=== PATIENT | female | born 1955 | race Caucasian/White ===

== ENCOUNTER → 2017-05-21 | Outpatient (CLI) | payer OTHER ==
[~2017-05-21] MED LIST: AMLO10TA2 PO; ATOR40TA PO; CATHETER FLUSH 10 ML SYR IV PRN; FURO-125 PO; LISI-552 PO; REGADENOSON 0.4 MG/5 ML SYR (LEXISCAN) IV ONE
[2017-05-21 12:44] VITALS: BP 157/83
[2017-05-21 13:02] VITALS: BP 151/100
[2017-05-21 15:07] VITALS: BP 157/83
--- NOTE | 2017-05-21 15:07 | Cardiology Stress Test Report ---
Stress Test Report Type of NM Stress Test: Test Type: LEXISCAN 0.4MG/5ML Date of Procedure/Referring: Date of Procedure: May 21, 2017 PCP Noni Al MD Admitting Physician No,Local Physician Indications: Chest pain, hypertension Baseline Heart Rate: 87 Baseline Blood Pressure: Blood Pressure Systolic: 157 Blood Pressure Diastolic: 83 Baseline EKG: Baseline EKG: sinus rhythm with prolonged PA interval. Summary: The patient was brought to the stress lab after informed consent was taken. Lexiscan stress test was performed according to the protocol. 0.4 mg of Lexiscan was given IV. Low-grade exercise was performed. Baseline EKG showed sinus rhythm with prolonged PA interval at 87 BPM. Blood pressure was 157/83 mmHg. Maximum heart rate was 111 BPM. Blood pressure was 162/106 mmHg. There was no chest pain, ST-T wave abnormalities or arrhythmias noted. 10.44 mCi of Myoview was given for rest imaging and 29.4 mCi of Myoview was given for stress imaging. Transient ischemic dilatation score is 1.1. Ejection fraction is 72 percent with no wall motion abnormalities. There is a large size mild to moderate anterior/lateral reversible ischemia noted. SSS 5. Conclusion: Pharmacological nuclear stress test is negative for ischemia. Normal LV function with no wall motion abnormalities. Anterior lateral ischemia. Coronary angiography is recommended. Noni AL MD May 21, 2017 3:07 pm
== END ==
LOC: CARD 11:10
PROVIDERS: ATTEND Internal Medicine Interventional Cardiology
DX: R07.9 Chest pain, unspecified (principal); E78.5 Hyperlipidemia, unspecified; I10 Essential (primary) hypertension; E66.01 Morbid (severe) obesity due to excess calories
CPT/HCPCS: 78452; 93017

== ENCOUNTER 2017-05-22 08:50 | Day surgery (SDC) | payer OTHER ==
[~2017-05-22] VITALS: Ht 167.6 cm; Wt 156.5 kg
[2017-05-22] VITALS (9 sets, daily range): BP systolic 139–164; BP diastolic 66–91
[~2017-05-22 08:50] MED LIST changes: -CATHETER FLUSH 10 ML SYR IV PRN; -FURO-125 PO; -LISI-552 PO; -REGADENOSON 0.4 MG/5 ML SYR (LEXISCAN) IV ONE
[2017-05-22] MEDS ORDERED: LIDOCAINE 1% INJ 50 ML (XYLOCAINE) VIAL ONE (09:10)
[2017-05-22] MEDS ORDERED: HEParin (CATH LAB) 2,000 ML IV ONE (09:10)
[2017-05-22] MEDS ORDERED: NS IV 1000 ML 1,000 ML ONE (09:10)
[2017-05-22] MEDS ORDERED: NS IV 1000 ML 1,000 ML IV SCH ×2 (09:18→14:10)
[2017-05-22] MEDS ORDERED: LISI-552 PO ×2 (09:56)
[2017-05-22] MEDS ORDERED: INFLUENZA TRIvalent 2017-2018 0.5 ML/45 MCG SYR IM ONE (10:00)
[2017-05-22 11:15] LABS: HEMOGLOBIN 13.9 G/DL (11.5-16.0); MEAN PLATELET VOLUME 10.2 FL (7.4-10.4); RED BLOOD COUNT 4.63 10^6/uL (4.35-5.85); RED CELL DISTRIBUTION WIDTH 13.3 % (10.0-14.5); WHITE BLOOD COUNT 8.1 10^3/uL (4.3-11.0)
[2017-05-22 11:29] LABS: PROTHROMBIN TIME PATIENT 12.9 SEC (12.2-14.7)
[2017-05-22 11:41] LABS: ALANINE AMINOTRANSFERASE 16 U/L (0-55); ALBUMIN 4.3 GM/DL (3.2-4.5); ALKALINE PHOSPHATASE 60 U/L (40-136); BUN/CREATININE RATIO 17; CALCIUM 9.7 MG/DL (8.5-10.1); CARBON DIOXIDE 25 MMOL/L (21-32); CHLORIDE 105 MMOL/L (98-107); CHOLESTEROL 112 MG/DL (< 200); CREATININE SERUM 0.84 MG/DL (0.60-1.30); GFR ESTIMATED > 60; GLUCOSE 96 MG/DL (70-105); HDL CHOLESTEROL 46 MG/DL (40-60); SODIUM 141 MMOL/L (135-145); TOTAL PROTEIN 7.4 GM/DL (6.4-8.2); TRIGLYCERIDES 67 MG/DL (<150); VLDL CHOLESTEROL 13 MG/DL (5-40)
[2017-05-22] MEDS ORDERED: MIDAZOLAM 5 MG/5 ML (VERSED) VIAL ONE (12:33)
[2017-05-22] MEDS ORDERED: fentaNYL INJECTION 100 MCG/2 ML AMP ONE (12:33)
[2017-05-22] MEDS ORDERED: diphenhydrAMINE 50 MG/ML INJ (BENADRYL) ONE (12:34)
[2017-05-22] MEDS ORDERED: NITROGLYCERIN DRIP 25 MG/D5W 250 ML IV ONE (12:34)
[2017-05-22] MEDS ORDERED: HEParin 1000 UNIT/ML (10ML VIAL) FOR BOLUS ONE (12:34)
[2017-05-22] MEDS ORDERED: VERAPAMIL 5 MG/2 ML (CALAN) VIAL IV ONE (12:34)
--- NOTE | 2017-05-22 14:04 | Cardiac Procedure Note-CS/ASA ---
Pre-Procedure Note Pre-Op Procedure Note H&P Reviewed The H&P was reviewed, patient examined and no changes noted. Date H&P Reviewed: May 22, 2017 Time H&P Reviewed: 11:00 Conscious Sedation Pre-Proced Time Reviewed: 11:00 ASA Class: 3 Airway Mallampati Classification: (lac courte oreilles appropriate class) I. II. III, IV Lungs Heart ASA score ASA 1: a normal healthy patient ASA 2: a patient with a mild systemic disease (mid diabetes, controlled hypertension, obesity ASA 3: a patient with a severe systemic disease that limits activity (angina , COPD, prior Myocardial infarction) ASA 4: a patient with an incapacitating disease that is a constant threat to life (CHF, renal failure) ASA 5: a moribund patient not expected to survive 24 hrs. (ruptured aneurysm) ASA 6: a declared brain patient whose organs are being harvested. For emergent operations, add the letter E after the classification Grade 1 Sedation Plan: Analgesia, Amnesia, Plan communicated to team members, Discussed options with patient/fam, Discussed risks with patient/fam Note The patient is an appropriate candidate to undergo the planned procedure, sedation, and anesthesia. The patient immediately re-assessed prior to indication. Noni CANALES MD May 22, 2017 2:04 pm
--- NOTE | 2017-05-22 14:10 | Coronary Angiography Report ---
Coronary Angiography Report DATE OF PROCEDURE: 05/22/17 INDICATION: chest pain, abnormal nuclear stress test. PREOPERATIVE DIAGNOSIS: chest pain, abnormal nuclear stress test. POSTOPERATIVE DIAGNOSIS: 1. Patent epicardial coronary arteries. 2. Hypertensive heart disease with diastolic dysfunction. HISTORY: this is a 62-year-old lady with history of severe hypertension who complained of recurrent episodes of chest discomfort. Stress test was performed which showed an anterior reversible defect.Therefore, the patient was scheduled for coronary angiography. PROCEDURES PERFORMED: 1.Coronary angiography. 2.Left heart catheterization. 3. Aortic root injection. 4. Aortic arch angiography. COMPLICATIONS: None. SPECIMENS: None. ESTIMATED BLOOD LOSS: 10 mL ANESTHESIA: Conscious sedation ANTICOAGULATION: IV heparin CONTRAST: 90 mL of Omnipaque. FLUOROSCOPY: 6.1 minutes. FLOUROSCOPY DOSE:900 mgy. PROCEDURE DETAILS: The patient is a 62 female and was brought to the [facility] after informed consent was taken. All the risks and complications were explained in detail; this included the risk of bleeding, vascular damage, stroke , IA and even . The patient was draped and prepped in the usual sterile fashion. Access was gained in the right radial artery with a 6 Uzbek sheath. Coronary angiography of the left coronary system was performed with the Blanco catheter. Aortic root injection and aortic arch angiography was performed with the Blanco catheter. Left heart catheterization and coronary angiography of the RCA was performed with the JR4 catheter. FINDINGS: 1.Left main: patent. 2.LAD: mild mid bridging. No significant disease. Transapical vessel. 3.Left circumflex artery: dominant vessel. Patent. 4.RCA: nondominant with no significant disease. 5.Left heart catheterization: aortic pressure 137/88 mmHg. LV pressure 140/20 mmHg. LVEDP 30 mmHg. Normal LV function with no wall motion abnormalities. No gradient across the aortic valve. 6. Aortic root injection: No significant aortic regurgitation and patent ostium of the left main. 7. Aortic arch angiography: No evidence of aneurysm or dissection noted. CONCLUSIONS: 1. Patent epicardial coronary arteries. 2. Hypertensive heart disease with elevated LVEDP suggesting diastolic dysfunction. Zane Al MD, FACP, FACC, [facility] Interventional Cardiology Noni AL MD May 22, 2017 2:10 pm
[2017-05-22] MEDS ORDERED: FURO-125 PO ×2 (14:12)
--- NOTE | 2017-05-22 14:12 | Discharge Inst-Post CATH ---
Discharge Inst-CATH Post Cardiac Cath D/C Inst Follow Up/Plan Dr. Al in one month. CARDIAC CATH DISCHARGE INSTRUCTIONS *Hold Metformin for 48 hours post heart cath. ACTIVITY * Go Home directly and rest. * Limit activity of the leg (or wrist if it was used) for 7 days including aerobics, swimming, jogging, bicycling, etc. * Restrict stair-climbing for 7 days if possible, if not, climb up with your non -cath leg, then bring together on the same step. * Avoid lifting, pushing, pulling or excessive movement of the affected extremity for 7 days. * Customary sexual activity may be resumed after 2 days-use caution not to use a position that strains or causes pain to the affected extremity. * No driving for 24 hours. * NO SMOKING. * Avoid straining for bowel movements for 7 days. * Gentle walking on level ground is allowed. * Returning to work will depend on the type of procedure and the results. Your doctor will discuss this with you. CALL YOUR DOCTOR FOR ANY OF THE FOLLOWING: *If bleeding from the puncture site occurs- Apply gentle pressure to site with clean cloth and call your doctor or EMS. * If a knot or lump forms under the skin, increases in size, or causes pain. * If bruising appears to be worsening or moving further down your leg instead of disappearing. * Temperature above 101 F. CARE OF YOUR GROIN INCISION; * Bruising or purple discoloration of the skin near the puncture site is common. * You may shower only, no bathtub bathing for 5 days. Be careful to avoid slipping as your leg may feel stiff. * If a closure device was used on your femoral artery, please see the attached guide regarding care of the device and your leg. * REMOVE the dressing from your groin the next day after your procedure in the shower. CARE OF YOUR WRIST INCISION; * Bruising or purple discoloration of the skin near the puncture site is common. * You may shower. * DO NOT submerge wrist. * Remove dressing in 24 hours. Noni AL MD May 22, 2017 2:12 pm
[2017-05-22] MEDS ORDERED: PATIENT MAY USE OWN MEDS, ALL PO SCH (14:15)
--- NOTE | 2017-05-22 14:15 | Cardiology Discharge Summary ---
Diagnosis/Chief Complaint Date of Admission 05/22/2017 Date of Discharge 05/22/2017 Admission Diagnosis chest pain, abnormal nuclear stress test Final/Discharge Diagnosis patent epicardial coronary arteries. Diastolic dysfunction Chief Complaint/HPI Chief Complaint/HPI this is a 62-year-old lady with new onset severe hypertension. She also had recurrent episodes of chest pain and shortness of breath.. Pharmacological nuclear stress test showed evidence of anterior ischemia. Coronary angiography and left heart catheterization was recommended. Discharge Summary Procedures coronary angiography showed patent epicardial coronary vessels. Left heart catheterization shows diastolic dysfunction. Discharge Physical Examination unremarkable Hospital Course unremarkable Pending Labs Laboratory Tests 05/22/17 11:05: White Blood Count 8.1, Red Blood Count 4.63, Hemoglobin 13.9, Hematocrit 41, Mean Corpuscular Volume 88, Mean Corpuscular Hemoglobin 30, Mean Corpuscular Hemoglobin Concent 34, Red Cell Distribution Width 13.3, Platelet Count 248, Mean Platelet Volume 10.2, Prothrombin Time 12.9, INR Comment 1.0, Activated Partial Thromboplast Time 26, Sodium Level 141, Potassium Level 4.0, Chloride Level 105, Carbon Dioxide Level 25, Anion Gap 11, Blood Urea Nitrogen 14, Creatinine 0.84, Estimat Glomerular Filtration Rate > 60, BUN/Creatinine Ratio 17, Glucose Level 96, Calcium Level 9.7, Total Bilirubin 2.0, Aspartate Amino Transf (AST/SGOT) 19, Alanine Aminotransferase (ALT/SGPT) 16, Alkaline Phosphatase 60, Total Protein 7.4, Albumin 4.3, Triglycerides Level 67, Cholesterol Level 112, LDL Cholesterol Direct 54, VLDL Cholesterol 13, HDL Cholesterol 46 Discussion & Recommendations Discussion due to diastolic dysfunction/hypertensive heart disease will add low-dose daily Lasix. Follow up appt.: Dr. Al in one month. Dicharge Diet: Low Sodium Diet Home Medications Reviewed patient Home Medication Reconciliation Form Discharge Home Medications: Reviewed and agree with Discharge Medication list on patient's Discharge Instruction sheet Condition at discharge stable. Instructions to patient/family Dr. Al in one month. Noni AL MD May 22, 2017 2:15 pm
== END 2017-05-22 17:24 | disposition home or self-care (01) ==
LOC: CATH 08:50
PROVIDERS: ATTEND Internal Medicine Interventional Cardiology
DX: I11.9 Hypertensive heart disease without heart failure (principal); E78.5 Hyperlipidemia, unspecified; E66.01 Morbid (severe) obesity due to excess calories; Z68.43 Body mass index [BMI] 50.0-59.9, adult; Z79.899 Other long term (current) drug therapy
CPT/HCPCS: 36221; 36415; 80053; 80061; 85027; 85610; 85730; 87081; 93458; 93567

== ENCOUNTER → 2020-11-01 | Outpatient (CLI) | payer OTHER ==
[~2020-11-01] MED LIST changes: +AMLO-251 PO; -AMLO10TA2 PO; +FURO-125 PO; +LISI20TA26 PO
[2020-11-01 17:54] LABS: BASOPHILS # (AUTO) 0.1 10^3/uL (0.0-0.1); BASOPHILS % (AUTO) 1 % (0-10); EOSINOPHILS # (AUTO) 0.3 10^3/uL (0.0-0.3); EOSINOPHILS % (AUTO) 5 % (0-10); HEMATOCRIT 35 % (35-52); HEMOGLOBIN 11.3 g/dL (11.5-16.0); LYMPHOCYTES % (AUTO) 27 % (12-44); MEAN CORPUSCULAR HEMOGLOBIN 30 pg (25-34); MEAN CORPUSCULAR HGB CONC 33 g/dL (32-36); MEAN CORPUSCULAR VOLUME 94 fL (80-99); MONOCYTES # (AUTO) 0.4 10^3/uL (0.0-1.0); MONOCYTES % (AUTO) 6 % (0-12); NEUTROPHILS # (AUTO) 4.6 10^3/uL (1.8-7.8); NEUTROPHILS % (AUTO) 62 % (42-75); PLATELET COUNT 226 10^3/uL (130-400); WHITE BLOOD COUNT 7.4 10^3/uL (4.3-11.0)
[2020-11-01 18:03] LABS: ALBUMIN 3.9 GM/DL (3.2-4.5); POTASSIUM 4.1 MMOL/L (3.6-5.0)
[2020-11-01 18:04] LABS: CALCIUM 9.3 MG/DL (8.5-10.1)
[2020-11-01 18:07] LABS: BILIRUBIN,TOTAL 1.5 MG/DL (0.1-1.0)
[2020-11-01 18:09] LABS: CREATININE SERUM 0.92 MG/DL (0.60-1.30)
[2020-11-01 18:12] LABS: MAGNESIUM 1.9 MG/DL (1.6-2.4)
== END ==
LOC: LAB 17:31
PROVIDERS: ATTEND Internal Medicine Cardiovascular Disease
DX: E78.2 Mixed hyperlipidemia (principal); R06.09 Other forms of dyspnea
CPT/HCPCS: 36415; 80053; 80061; 83735; 84443; 85025

== ENCOUNTER 2021-07-28 10:23 | Emergency (ER) | payer MEDICARE, OTHER ==
[~2021-07-28] VITALS: Ht 157 cm; Wt 151.0 kg
--- NOTE | 2021-07-28 10:46 | Diagnostic Imaging Report ---
EXAMINATION: Chest 1 view HISTORY: Right arm weakness. Slurred speech. COMPARISON: 05/11/2017. FINDINGS: The lung volumes are normal. No focal consolidation is seen. No large pleural effusion or pneumothorax is seen. The cardiomediastinal silhouette is normal in size and contour. No acute osseous abnormality is seen. IMPRESSION: 1. No acute pleuroparenchymal process. Dictated by: Dictated on workstation # [id number]
--- NOTE | 2021-07-28 10:49 | Diagnostic Imaging Report ---
EXAMINATION: CT head without contrast. TECHNIQUE: Multiple contiguous axial images were obtained through the brain without the use of intravenous contrast. All CT scans use one or more of the following dose optimizing techniques: Automated exposure control, MA and/or KvP adjustment based on patient size and exam type or iterative reconstruction. HISTORY: Right-sided weakness. Slurred speech. Concern for acute ischemia. COMPARISON: None available. FINDINGS: Small acute hemorrhage is visualized within the left basal ganglia and extending into the left fuentes radiata. No surrounding edema or mass effect is seen at this time. Chronic microvascular disease is scattered in the periventricular and subcortical white matter. The ventricles, cortical sulci, and basilar cisterns are symmetric and unremarkable. The sellar and suprasellar regions have a normal appearance. The orbits are normal. Retained secretions are seen in the bilateral maxillary and ethmoid sinuses. Mastoid air cells are clear. No soft tissue abnormality is seen. No osseous lesions or fractures are seen. IMPRESSION: 1. Small focus of acute hemorrhage within the left basal ganglia and left fuentes radiata, favored to represent a small hemorrhagic lacunar infarct. No associated mass effect or edema is seen at this time. Recommend continued follow-up as indicated. 2. Scattered chronic microvascular disease. Findings were discussed with Ang Luo APRN at 10:40 a.m. on 07/28/[address] Gerry Collins. Dictated by: Dictated on workstation # [id number]
--- NOTE | 2021-07-28 10:58 | ED General ---
General Chief Complaint: Neuro-Stroke Like Symptoms Stated Complaint: STROKE LIKE SYMPTOMS Source of Information: Patient Exam Limitations: No Limitations History of Present Illness Date Seen by Provider: Jul 28, 2021 Time Seen by Provider: 10:35 Initial Comments To ER by EMS from home with reports of right arm weakness and garbled speech as reported by the patient. She noticed that when she awakened at 9 AM she felt fine. At this time she reports that her speech is back to normal but her right arm still feels unusually weak. No history of this. She does have a history of hypertension and hyperlipidemia. She takes no antiplatelet or blood thinner medications. Her medications include: atorvastatin 40 mg daily Norvasc 10 mg daily Lasix 20 mg daily Coreg 6.25 mg twice a day Lisinopril 40 mg daily Timing/Duration: 1-3 Hours Severity: Moderate Associated Systoms: Denies Symptoms Allergies and Home Medications Allergies Coded Allergies: No Known Drug Allergies (Unverified , 05/11/17) Patient Home Medication List Home Medication List Reviewed: Yes Amlodipine Besylate (Amlodipine Besylate) 10 Mg Tablet, 10 MG PO DAILY Prescribed by: CARISSA LUNA on 05/12/17 1403 Atorvastatin Calcium (Lipitor) 40 Mg Tablet, 40 MG PO HS Prescribed by: CARISSA LUNA on 05/12/17 1403 Furosemide (Lasix) 20 Mg Tablet, 20 MG PO DAILY Prescribed by: Noni CANALES on 05/22/17 1412 Lisinopril (Lisinopril) 20 Mg Tablet, 20 MG PO DAILY, (Reported) Entered as Reported by: PAULETTE MAHAN on 05/22/17 0956 Review of Systems Review of Systems Constitutional: see HPI EENTM: see HPI Respiratory: no symptoms reported Cardiovascular: no symptoms reported Genitourinary: no symptoms reported Musculoskeletal: no symptoms reported Skin: no symptoms reported Psychiatric/Neurological: No Symptoms Reported; Denies Headache; Paresthesia Hematologic/Lymphatic: No Symptoms Reported Immunological/Allergic: no symptoms reported Past Agoqivu-Szdqbv-Tthvuy Hx Seasonal Allergies Seasonal Allergies: No Past Medical History Surgeries: No Section Respiratory: No Currently Using CPAP: No Currently Using BIPAP: No Cardiac: Yes Hypertension Neurological: No Genitourinary: No Gastrointestinal: No Musculoskeletal: Yes (chronic knee pain) Endocrine: No HEENT: No Cancer: No Psychosocial: No Integumentary: No Blood Disorders: No Adverse Reaction/Blood Tranf: No Family Medical History No Pertinent Family Hx Physical Exam Vital Signs Vital Signs - First Documented 07/28/21 10:23 Temp 36.1 Pulse 92 Resp 20 B/P (MAP) 123/70 (87) Pulse Ox 100 O2 Delivery Room Air Capillary Refill : Height, Weight, BMI Height: 5'6.00" Weight: 345lbs. 0.0oz. 156.015856cf; 55.7 BMI Method:Stated General Appearance: No Apparent Distress, WD/WN, Obese, Other (Alert and oriented very pleasant GCS 15. Her blood pressure is 111/79.) Eyes: Bilateral Eye Normal Inspection, Bilateral Eye PERRL, Bilateral Eye EOMI HEENT: PERRL/EOMI, TMs Normal Neck: Full Range of Motion, Normal Inspection Respiratory: Normal Breath Sounds, No Accessory Muscle Use, No Respiratory Distress Cardiovascular: Regular Rate, Rhythm, Normal Peripheral Pulses Gastrointestinal: Non Tender, Soft Extremity: Normal Capillary Refill, Normal Inspection Neurologic/Psychiatric: Alert, Oriented x3 Skin: Normal Color, Warm/Dry NIH Stroke Scale NIH : Select: Initial Level of Consciousness: 0=Alert Level of Consciousness-Questio: 0=Answers both month/age LOC Commands: 0=Performs both tasks Gaze: 0=Normal Visual Vernon: 0=No visual loss Facial Movement (Facial Paresi: 0=Normal symmetrical mnt Motor Function-Arms Right: 1=Drift Motor Function-Arms Left: 0=No drift Motor Function-Legs Right: 0=No drift Motor Function-Legs Left: 0=No drift Limb Ataxia: 1=Present in one limb Sensory: 1=Mild to Moderate loss Best Language: 0=No aphasia Dysarthria: 0=Normal Extinction & Inattention: 0=No abnormality NIH Stroke Scale Score: 3 Progress/Results/Core Measures Suspected Sepsis SIRS Temperature: Pulse: Respiratory Rate: Laboratory Tests 07/28/21 10:55: White Blood Count 7.7 Blood Pressure / Mean: Laboratory Tests 07/28/21 10:55: Creatinine 1.00, INR Comment 0.9, Platelet Count 221, Total Bilirubin 1.0 Results/Orders Lab Results Laboratory Tests Test 07/28/21 10:55 07/28/21 12:07 Range/Units White Blood Count 7.7 4.3-11.0 10^3/uL Red Blood Count 3.83 3.80-5.11 10^6/uL Hemoglobin 11.5 11.5-16.0 g/dL Hematocrit 35 35-52 % Mean Corpuscular Volume 92 80-99 fL Mean Corpuscular Hemoglobin 30 25-34 pg Mean Corpuscular Hemoglobin Concent 33 32-36 g/dL Red Cell Distribution Width 13.2 10.0-14.5 % Platelet Count 221 130-400 10^3/uL Mean Platelet Volume 10.1 9.0-12.2 fL Immature Granulocyte % (Auto) 0 % Neutrophils (%) (Auto) 65 42-75 % Lymphocytes (%) (Auto) 21 12-44 % Monocytes (%) (Auto) 8 0-12 % Eosinophils (%) (Auto) 5 0-10 % Basophils (%) (Auto) 1 0-10 % Neutrophils # (Auto) 5.0 1.8-7.8 10^3/uL Lymphocytes # (Auto) 1.6 1.0-4.0 10^3/uL Monocytes # (Auto) 0.6 0.0-1.0 10^3/uL Eosinophils # (Auto) 0.4 H 0.0-0.3 10^3/uL Basophils # (Auto) 0.1 0.0-0.1 10^3/uL Immature Granulocyte # (Auto) 0.0 0.0-0.1 10^3/uL Prothrombin Time 12.7 12.2-14.7 SEC INR Comment 0.9 0.8-1.4 Activated Partial Thromboplast Time 31 24-35 SEC D-Dimer 2.15 H 0.00-0.49 UG/ML Sodium Level 139 135-145 MMOL/L Potassium Level 4.1 3.6-5.0 MMOL/L Chloride Level 105 98-107 MMOL/L Carbon Dioxide Level 21 21-32 MMOL/L Anion Gap 13 5-14 MMOL/L Blood Urea Nitrogen 18 7-18 MG/DL Creatinine 1.00 0.60-1.30 MG/DL Estimat Glomerular Filtration Rate 62 BUN/Creatinine Ratio 18 Glucose Level 103 70-105 MG/DL Calcium Level 9.0 8.5-10.1 MG/DL Corrected Calcium 9.3 8.5-10.1 MG/DL Total Bilirubin 1.0 0.1-1.0 MG/DL Aspartate Amino Transf (AST/SGOT) 14 5-34 U/L Alanine Aminotransferase (ALT/SGPT) 10 0-55 U/L Alkaline Phosphatase 63 40-136 U/L Troponin I < 0.028 <0.028 NG/ML Total Protein 6.4 6.4-8.2 GM/DL Albumin 3.6 3.2-4.5 GM/DL Urine Color YELLOW Urine Clarity CLEAR Urine pH 6.0 5-9 Urine Specific Harmony 1.015 L 1.016-1.022 Urine Protein NEGATIVE NEGATIVE Urine Glucose (UA) NEGATIVE NEGATIVE Urine Ketones NEGATIVE NEGATIVE Urine Nitrite NEGATIVE NEGATIVE Urine Bilirubin NEGATIVE NEGATIVE Urine Urobilinogen 0.2 < = 1.0 MG/DL Urine Leukocyte Esterase 2+ H NEGATIVE Urine RBC (Auto) NEGATIVE NEGATIVE Urine RBC RARE /HPF Urine WBC 2-5 /HPF Urine Squamous Epithelial Cells 2-5 /HPF Urine Crystals NONE /LPF Urine Bacteria TRACE /HPF Urine Casts NONE /LPF Urine Mucus NEGATIVE /LPF Urine Culture Indicated NO My Orders Orders - FELICITA LUO APRN Cbc With Automated Diff (07/28/21 10:31) Protime With Inr (07/28/21 10:31) Partial Thromboplastin Time (07/28/21 10:31) Comprehensive Metabolic Panel (07/28/21 10:31) Fibrin Degradation Products (07/28/21 10:31) Troponin I Gina (07/28/21 10:31) Ua Culture If Indicated (07/28/21 10:31) Chest 1 View, Ap/Pa Only (07/28/21 10:31) Ekg Tracing (07/28/21 10:31) Nothing By Mouth (07/28/21 Lunch) Accucheck Stat ONCE (07/28/21 10:31) Ed Iv/Invasive Line Start (07/28/21 10:31) Ed Iv/Invasive Line Start (07/28/21 10:31) Vital Signs Stroke Patient Q15M (07/28/21 10:31) Ct Head Wo-R/O Stroke (07/28/21 10:31) O2 (07/28/21 10:31) Intake & Output 06,14,22 (07/28/21 10:31) Monitor-Rhythm Ecg Trace Only (07/28/21 10:31) Dysphagia Screening Tool Q10MX1 (07/28/21 10:31) Post Thrombolytic Adminstratio (07/28/21 10:31) Lipid Panel (07/29/21 06:00) Vital Signs/I&O 07/28/21 07/28/21 10:23 10:23 Temp 36.1 Pulse 92 Resp 20 B/P (MAP) 123/70 (87) Pulse Ox 100 100 O2 Delivery Room Air Capillary Refill : Departure Communication (Admissions) 1152-I spoke with Dr. Garcia from neurosurgery services at [facility]. He accepts the patient in transfer. I am waiting a phone call back from hospitalist service. Patient remains hemodynamically stable with a blood pressure of 121/74. Family Conversation NAME: MAG SOLO MED REC#: [id number] PT STATUS: REG ER : 1955 PHYSICIAN: FELICITA LUO APRN ADMIT DATE: 07/28/21/ER Signed Date of Exam:07/28/21 CHEST 1 VIEW, AP/PA ONLY EXAMINATION: Chest 1 view HISTORY: Right arm weakness. Slurred speech. COMPARISON: 05/11/2017. FINDINGS: The lung volumes are normal. No focal consolidation is seen. No large pleural effusion or pneumothorax is seen. The cardiomediastinal silhouette is normal in size and contour. No acute osseous abnormality is seen. IMPRESSION: 1. No acute pleuroparenchymal process. Dictated by: Dictated on workstation # [id number] Dict: 07/28/21 1044 Trans: 07/28/21 1056 [id number] Interpreted by: GERRY COLLINS DO Electronically signed by: GERRY COLLINS DO 07/28/21 1056 NAME: MAG SOLO MED REC#: [id number] PT STATUS: REG ER : 1955 PHYSICIAN: FELICITA LUO APRN ADMIT DATE: 07/28/21/ER Draft Date of Exam:07/28/21 CT HEAD WO-R/O STROKE EXAMINATION: CT head without contrast. TECHNIQUE: Multiple contiguous axial images were obtained through the brain without the use of intravenous contrast. All CT scans use one or more of the following dose optimizing techniques: Automated exposure control, MA and/or KvP adjustment based on patient size and exam type or iterative reconstruction. HISTORY: Right-sided weakness. Slurred speech. Concern for acute ischemia. COMPARISON: None available. FINDINGS: Small acute hemorrhage is visualized within the left basal ganglia and extending into the left fuentes radiata. No surrounding edema or mass effect is seen at this time. Chronic microvascular disease is scattered in the periventricular and subcortical white matter. The ventricles, cortical sulci, and basilar cisterns are symmetric and unremarkable. The sellar and suprasellar regions have a normal appearance. The orbits are normal. Retained secretions are seen in the bilateral maxillary and ethmoid sinuses. Mastoid air cells are clear. No soft tissue abnormality is seen. No osseous lesions or fractures are seen. IMPRESSION: 1. Small focus of acute hemorrhage within the left basal ganglia and left fuentes radiata, favored to represent a small hemorrhagic lacunar infarct. No associated mass effect or edema is seen at this time. Recommend continued follow-up as indicated. 2. Scattered chronic microvascular disease. Findings were discussed with Felicita Luo APRN at 10:40 a.m. on 07/28/[address] Gerry Collins. Dictated on workstation # [id number] Dict: 07/28/21 1039 Trans: 07/28/21 1048 [id number] Interpreted by: GERRY COLLINS DO Electronically signed by: Impression Primary Impression: ICH (intracerebral hemorrhage) Disposition: XFER SHT-TRM HOSP Condition: Stable Transfer Transfer Reason: Exceeds level of care Departure-Patient Inst. Referrals: NO,LOCAL PHYSICIAN (PCP/Family) Primary Care Physician FELICITA LUO APRN Jul 28, 2021 10:58
[2021-07-28 11:03] LABS: BASOPHILS # (AUTO) 0.1 10^3/uL (0.0-0.1); BASOPHILS % (AUTO) 1 % (0-10); EOSINOPHILS # (AUTO) 0.4 10^3/uL (0.0-0.3); EOSINOPHILS % (AUTO) 5 % (0-10); HEMATOCRIT 35 % (35-52); HEMOGLOBIN 11.5 g/dL (11.5-16.0); LYMPHOCYTES # (AUTO) 1.6 10^3/uL (1.0-4.0); LYMPHOCYTES % (AUTO) 21 % (12-44); MEAN CORPUSCULAR HEMOGLOBIN 30 pg (25-34); MEAN CORPUSCULAR HGB CONC 33 g/dL (32-36); MEAN CORPUSCULAR VOLUME 92 fL (80-99); MEAN PLATELET VOLUME 10.1 fL (9.0-12.2); MONOCYTES # (AUTO) 0.6 10^3/uL (0.0-1.0); MONOCYTES % (AUTO) 8 % (0-12); NEUTROPHILS % (AUTO) 65 % (42-75); PLATELET COUNT 221 10^3/uL (130-400); WHITE BLOOD COUNT 7.7 10^3/uL (4.3-11.0)
[2021-07-28 11:18] LABS: ALBUMIN 3.6 GM/DL (3.2-4.5); CHLORIDE 105 MMOL/L (98-107); POTASSIUM 4.1 MMOL/L (3.6-5.0); SODIUM 139 MMOL/L (135-145)
[2021-07-28 11:21] LABS: GLUCOSE 103 MG/DL (70-105); TOTAL PROTEIN 6.4 GM/DL (6.4-8.2)
[2021-07-28 11:22] LABS: CARBON DIOXIDE 21 MMOL/L (21-32)
[2021-07-28 11:23] LABS: FIBRIN DEGRADATION PRODUCTS 2.15 UG/ML (0.00-0.49); INR 0.9 (0.8-1.4); PROTHROMBIN TIME PATIENT 12.7 SEC (12.2-14.7)
[2021-07-28 11:24] LABS: ALKALINE PHOSPHATASE 63 U/L (40-136); GFR ESTIMATED 62
[2021-07-28 11:25] LABS: BUN/CREATININE RATIO 18
[2021-07-28 11:27] LABS: ALANINE AMINOTRANSFERASE 10 U/L (0-55)
[2021-07-28 12:16] LABS: BILIRUBIN,URINE NEGATIVE (NEGATIVE); CLARITY,URINE CLEAR; COLOR,URINE YELLOW; GLUCOSE, URINE (UA) NEGATIVE (NEGATIVE); KETONES,URINE NEGATIVE (NEGATIVE); LEUKOCYTE ESTERASE ,URINE 2+ (NEGATIVE); NITRITE,URINE NEGATIVE (NEGATIVE); PROTEIN,URINE NEGATIVE (NEGATIVE)
[2021-07-28 12:32] LABS: RBC,URINE RARE /HPF
[2021-07-28 12:33] LABS: BACTERIA,URINE TRACE /HPF
[2021-07-28 14:34] VITALS: BP 133/89
== END 2021-07-28 14:34 | disposition short-term general hospital (02) ==
LOC: ER 10:24
DX: I61.9 Nontraumatic intracerebral hemorrhage, unspecified (principal); R29.703 NIHSS score 3; I10 Essential (primary) hypertension; E78.5 Hyperlipidemia, unspecified; Z79.899 Other long term (current) drug therapy
CPT/HCPCS: 36415; 70450; 71045; 80053; 81000; 84484; 85025; 85379; 85610; 85730; 93005; 93041

== ENCOUNTER → 2022-01-24 | Outpatient (CLI) | payer MEDICARE, OTHER | LOC: CARD 12:31 | PROVIDERS: ATTEND Nurse Practitioner Family | DX: I51.7 Cardiomegaly (principal) | CPT/HCPCS: 93306 ==